=== PATIENT | female | born 1990 | race Two or more races ===

== ENCOUNTER 2018-04-19 13:34 | Outpatient (CLI) | payer OTHER | END 2018-04-19 13:39 | disposition home or self-care (01) | LOC: SONOGRAMA 13:34 | DX: E05.80 Other thyrotoxicosis without thyrotoxic crisis or storm (principal) ==

== ENCOUNTER 2018-05-20 09:16 | Outpatient (CLI) | payer OTHER | END 2018-05-20 09:25 | disposition home or self-care (01) | LOC: SONOGRAMA 09:16 | DX: E04.2 Nontoxic multinodular goiter (principal) ==

== ENCOUNTER 2018-05-28 11:21 | Emergency (ER) | payer OTHER ==
[~2018-05-28] VITALS: Ht 149.9 cm; Wt 84.4 kg
[2018-05-28] MEDS ORDERED: METHIMAZOLE5 MG PO (11:39)
[2018-05-28] MEDS ORDERED: AMBIEN CR12.5 MG PO (16:34)
== END 2018-05-28 17:45 | disposition home or self-care (01) ==
LOC: ER 11:21
DX: N61.0 Mastitis without abscess (principal)

== ENCOUNTER 2019-11-03 12:08 | Emergency (ER) | payer OTHER ==
[~2019-11-03] VITALS: Ht 149.9 cm; Wt 83.9 kg
[~2019-11-03 12:08] MED LIST: AMBIEN CR12.5 MG PO; METHIMAZOLE5 MG PO
[2019-11-03] MEDS ORDERED: SYNTHROID175 MCG PO (12:53)
[2019-11-03] MEDS ORDERED: CIPRO500 MG PO (17:48)
== END 2019-11-03 17:55 | disposition home or self-care (01) ==
LOC: ER 12:08
DX: N39.0 Urinary tract infection, site not specified (principal); E03.8 Other specified hypothyroidism

== ENCOUNTER 2020-01-18 11:09 | Outpatient (CLI) | payer OTHER ==
[~2020-01-18 11:09] MED LIST changes: +CIPRO500 MG PO; +SYNTHROID175 MCG PO
== END 2020-01-18 11:15 | disposition home or self-care (01) ==
LOC: MRI 11:09
DX: R51 Headache (principal); R42 Dizziness and giddiness
CPT/HCPCS: 70551

== ENCOUNTER 2022-10-17 14:53 | Emergency (ER) | payer OTHER ==
[~2022-10-17] VITALS: Ht 149.9 cm; Wt 84.4 kg
[2022-10-17] MEDS ORDERED: METROGEL60 GM VAG (18:43)
== END 2022-10-17 19:02 | disposition home or self-care (01) ==
LOC: ER 14:53
DX: O20.9 Hemorrhage in early pregnancy, unspecified (principal)

== ENCOUNTER 2022-10-21 16:09 | Emergency (ER) | payer OTHER ==
[~2022-10-21] VITALS: Ht 149.9 cm; Wt 90.3 kg
[~2022-10-21 16:09] MED LIST changes: +METROGEL60 GM VAG
[2022-10-21] MEDS ORDERED: PRENA1 TRUE CO1 EACH (16:26)
== END 2022-10-21 20:01 | disposition home or self-care (01) ==
LOC: ER 16:09
DX: O99.511 Diseases of the respiratory system complicating pregnancy, first trimester (principal); Z3A.01 Less than 8 weeks gestation of pregnancy; Z20.822 Contact with and (suspected) exposure to COVID-19

== ENCOUNTER 2024-07-24 19:24 | Emergency (ER) | payer OTHER ==
[~2024-07-24] VITALS: Ht 149.9 cm; Wt 84.8 kg
[~2024-07-24 19:24] MED LIST changes: +PRENA1 TRUE CO1 EACH
[2024-07-24] MEDS ORDERED: METOCLOPRAMIDE HCL 5 MG/ML VIAL IM STA (21:05)
[2024-07-24] MEDS ORDERED: SUMATRIPTAN SUCCINATE 6 MG/0.5 ML VIAL SUBCUTANEO STA (21:11)
[2024-07-24] MEDS ORDERED: KETOROLAC TROMETHAMINE 30 MG VIAL IM STA (21:13)
[2024-07-24 21:58] LABS: HEMATOCRIT 42.3 % (36.0-45.00); HEMOGLOBIN 13.8 g/dL (12.0-15.00); MEAN CELL VOLUME 86.1 fL (80.00-100.00); MEAN CORPUSCULAR HEMOGLOBIN 28.2 pg (27.00-32.0); MEAN CORPUSCULAR HGB CONC 32.7 g/dl (32.0-36.0); PLATELET COUNT 326 K/uL (150-450); RED BLOOD COUNT 4.91 M/uL (4.00-6.00); RED CELL DISTRIBUTION WIDTH 13.8 % (11.5-14.5)
[2024-07-24 21:59] LABS: URINE BILIRRUBIN Negative (NEGATIVE); URINE BLOOD Small; URINE COLOR Yellow; URINE GLUCOSE Negative (NEGATIVE); URINE KETONE Negative (NEGATIVE); URINE LEUKOCYTE Negative; URINE NITRATE Negative; URINE PROTEIN Negative (NEGATIVE); URINE UROBILINOGEN 0.2 E.U./dl
[2024-07-24 22:02] LABS: URINE BACTERIA 648.8 uL (0.0-1933); URINE EPITHELIAL CELLS 20.7 uL (0.0-38.8); URINE RBC 13.2 uL (0.0-20.8); URINE WBC 19.6 uL (0.0-23.2)
[2024-07-24 22:04] LABS: URINE CAST 0.45 uL (0.0-1.40)
[2024-07-24 22:05] LABS: URINE APPEARANCE CLEAR
[2024-07-24] MEDS ORDERED: CEFTRIAXONE SODIUM 1,000 MG VIAL IM STA (22:54)
== END 2024-07-24 23:31 | disposition home or self-care (01) ==
LOC: ER 19:26
DX: J01.90 Acute sinusitis, unspecified (principal); B96.89 Other specified bacterial agents as the cause of diseases classified elsewhere

== ENCOUNTER 2025-03-15 13:27 | Emergency (ER) | payer OTHER ==
[~2025-03-15] VITALS: Ht 149.9 cm; Wt 86.2 kg
[2025-03-15] MEDS ORDERED: KETOROLAC TROMETHAMINE 30 MG VIAL IM STA (18:04)
[2025-03-15] MEDS ORDERED: ORPHENADRINE CITRATE 30 MG/ML AMPUL IM STA (18:05)
[2025-03-15] MEDS ORDERED: KETOROLAC TROMETHAMINE 30 MG VIAL ONE (18:27)
[2025-03-15] MEDS ORDERED: ORPHENADRINE CITRATE 30 MG/ML AMPUL ONE (18:28)
== END 2025-03-15 18:54 | disposition home or self-care (01) ==
LOC: ER 14:09
DX: R42 Dizziness and giddiness (principal)

== ENCOUNTER 2025-06-07 12:41 | Emergency (ER) | payer OTHER ==
[~2025-06-07] VITALS: Ht 149.9 cm; Wt 77.1 kg
[2025-06-07 13:04] VITALS: BP 120/76; O2SAT 97
[2025-06-07] MEDS ORDERED: KETOROLAC TROMETHAMINE 30 MG VIAL IM STA (17:56)
[2025-06-07] MEDS ORDERED: KETOROLAC TROMETHAMINE 30 MG VIAL ONE (18:39)
== END 2025-06-07 18:49 | disposition home or self-care (01) ==
LOC: ER 12:41
DX: N64.4 Mastodynia (principal)